=== PATIENT | female | born 1985 | race Caucasian/White ===

== ENCOUNTER 2017-04-20 05:18 | Inpatient (IN) | payer OTHER ==
[~2017-04-20] VITALS: Ht 167.6 cm; Wt 85.0 kg
[~2017-04-20 05:18] MED LIST: COLA100C5 PO; PRENTAB55 PO; TYLE500T78 PO
[2017-04-20 06:00] LABS: MEAN CORPUSCULAR HEMOGLOBIN 32.5 pg (27.0-33.0); MEAN CORPUSCULAR HGB CONC 34.9 g/dl (32.0-36.5); MEAN CORPUSCULAR VOLUME 93.4 fl (80.0-96.0); RED CELL DISTRIBUTION WIDTH 13.4 % (11.5-14.5)
[2017-04-20] MEDS ORDERED: MORPHINE PRES-FREE INJ 10 MG/10 ML VIAL (J2274) As Ordered ONE (07:26)
[2017-04-20] MEDS ORDERED: BICITRA 30ML SOLN UDC As Ordered ONE (07:34)
[2017-04-20] MEDS ORDERED: ceFAZolin 2 GM/D5W 50 ML IV BAG (J0690) As Ordered ONE (07:35)
[2017-04-20] MEDS ORDERED: LACTATED RINGER'S 1000 ML IV ONE (07:45)
[2017-04-20] MEDS ORDERED: LR 1,000 ML IV SCH ×2 (07:45→09:45)
[2017-04-20] MEDS ORDERED: BICITRA 30ML SOLN UDC PO ONE (07:45)
[2017-04-20] MEDS ORDERED: OXYTOCIN INJ 10 UNITS/ML VIAL (J2590) As Ordered ONE (08:05)
[2017-04-20] MEDS ORDERED: ePHEDrine SULFATE 25 MG/5 ML(5MG/ML) SYRINGE As Ordered ONE (08:05)
[2017-04-20] MEDS ORDERED: ONDANSETRON 4MG/2ML VIAL (J2405) As Ordered ONE (08:05)
[2017-04-20] MEDS ORDERED: KETOROLAC 60 MG/2 ML VIAL (J1885) As Ordered ONE (08:06)
[2017-04-20] MEDS ORDERED: fentaNYL 100 MCG/2 ML INJECTION (J3010) As Ordered ONE (08:31)
[2017-04-20] MEDS ORDERED: KETAMINE HCL 200 MG/20 ML VIAL As Ordered ONE (08:41)
[2017-04-20] MEDS ORDERED: MIDAZOLAM INJ 2 MG/2 ML VIAL (J2250) As Ordered ONE (08:42)
[2017-04-20] MEDS: LR 1,000 ML IV SCH ×2 (09:23→17:23)
[2017-04-20] MEDS ORDERED: OXYTOCIN DRIP 30 UNITS in APPROPRIATE DILUENT 1 EA IV SCH (09:23)
[2017-04-20] MEDS ORDERED: METOCLOPRAMIDE INJ 10MG/2ML VIAL (J2765) IV PRN ×2 (09:30→09:45)
[2017-04-20] MEDS ORDERED: RHOGAM 300 MCG (1500 IU) INJ (J2790) IM SCH (09:30)
[2017-04-20] MEDS ORDERED: MEASLES,MUMPS,RUBELLA VACCINE INJ (MMR-II) (90707) SC SCH (09:30)
[2017-04-20] MEDS ORDERED: PERCOCET 5MG/325MG TAB PO PRN ×2 (09:30→09:45)
[2017-04-20] MEDS ORDERED: fentaNYL 100 MCG/2 ML INJECTION (J3010) IV PRN (09:45)
[2017-04-20] MEDS ORDERED: ONDANSETRON 4MG/2ML VIAL (J2405) IV PRN (09:45)
[2017-04-20] MEDS ORDERED: MEPERIDINE INJ 25 MG/ML VIAL (J2175) IV PRN (09:45)
[2017-04-20 10:50] VITALS: BP 104/66
[2017-04-20 11:20] VITALS: BP 100/55
[2017-04-20 12:25] VITALS: BP 104/55
[2017-04-20 13:20] VITALS: BP 106/62
[2017-04-20] MEDS: PRENATAL VITAMINS CHEWABLE TABLET PO SCH (14:41)
[2017-04-20] MEDS: DOCUSATE SODIUM 100 MG CAP PO SCH ×2 (14:41→20:03)
[2017-04-20] MEDS: KETOROLAC 30 MG/ML VIAL (J1885) IV SCH ×2 (14:42→20:03)
[2017-04-20] MEDS: diphenhydrAMINE INJ 50MG/ML VIAL (J1200) IV PRN ×2 (16:44→21:37)
[2017-04-20 17:52] VITALS: BP 96/55
[2017-04-20 22:03] VITALS: BP 103/51
[2017-04-21] MEDS: LR 1,000 ML IV SCH ×3 (00:50→16:33)
[2017-04-21 02:00] VITALS: BP 100/58
[2017-04-21] MEDS: KETOROLAC 30 MG/ML VIAL (J1885) IV SCH (03:12)
[2017-04-21 05:16] VITALS: BP 105/52
--- NOTE | 2017-04-21 07:06 | IPNPDOC ---
Text Note Date of Service The patient was seen on 04/21/17. NOTE POD1 prog note States feeling well, no complaints. No heavy VB. Pain controlled. Voiding, ambulatory. Bonding well and breast feeding well. VSSAF CTAB RRR Ut at U-2, firm Inc CDI, bandage removed (minimal strike thru) Ext no CCE UO adequate CBC pending today a/p: Doing well. d/c likely tomorrow. Routine Postop care. Sessions VSZeb, I+O VSZeb I+O Vital Signs Date Time Temp Pulse Resp B/P (MAP) Pulse Ox O2 Delivery O2 Flow Rate FiO2 04/21/17 05:16 98.0 64 16 105/52 (69) 97 Room Air I&O- Last 24 Hours up to 6 AM 04/21/17 06:00 Intake Total 625 ml Output Total 2100 ml Balance -1475 ml BRANDY MONTES MD Apr 21, 2017 07:06
[2017-04-21 07:27] LABS: MEAN CORPUSCULAR HEMOGLOBIN 33.2 pg (27.0-33.0); MEAN CORPUSCULAR HGB CONC 34.6 g/dl (32.0-36.5); MEAN CORPUSCULAR VOLUME 95.9 fl (80.0-96.0); RED CELL DISTRIBUTION WIDTH 13.4 % (11.5-14.5); WHITE BLOOD COUNT 11.4 K/mm3 (4.0-10.0)
[2017-04-21] MEDS: DOCUSATE SODIUM 100 MG CAP PO SCH ×2 (08:53→19:53)
[2017-04-21] MEDS: PRENATAL VITAMINS CHEWABLE TABLET PO SCH (08:54)
[2017-04-21] MEDS: PERCOCET 5MG/325MG TAB PO PRN ×3 (08:56→18:12)
[2017-04-21 10:10] VITALS: BP 93/50
[2017-04-21 14:27] VITALS: BP 111/60
[2017-04-21] MEDS: IBUPROFEN 800 MG TAB PO SCH (19:00)
[2017-04-22 02:00] VITALS: BP 102/56
[2017-04-22] MEDS: IBUPROFEN 800 MG TAB PO SCH (02:45)
[2017-04-22] MEDS: PERCOCET 5MG/325MG TAB PO PRN (05:10)
[2017-04-22 06:00] VITALS: BP 91/54
--- NOTE | 2017-04-22 06:43 | RO ---
DATE OF PROCEDURE: 04/20/2017 PREOPERATIVE DIAGNOSES: Prior section and undesired fertility. POSTOPERATIVE DIAGNOSES: Prior section and undesired fertility. OPERATIVE PROCEDURE: Elective repeat section and bilateral tubal ligation. SURGEON: Dr. Payam Flores FOOD SERVICE MANAGER: Dr. Dallas Celestin ANESTHESIA: Spinal. ESTIMATED BLOOD LOSS: 500 mL. DRAINS: 850 mL of clear urine in a Bernal catheter at the end of the procedure. FLUIDS REPLACED: Lactated Ringer's 1800 mL. SPECIMENS REMOVED: Bilateral segments of fallopian tubes. PREOPERATIVE ANTIBIOTICS: Ancef 2 grams IV. INDICATION: Prior and undesired fertility. DESCRIPTION OF OPERATION: Patient strongly desired a tubal ligation and repeat delivery, and informed consent was obtained in the clinic approximately 1 week prior to the scheduled surgery. On day of surgery, there were no changes and the patient desired to proceed as planned. She was taken to the operating room with an IV in place, and a spinal anesthetic was easily obtained. heart tones after the spinal were normal. Bernal catheter was placed without difficulty, and a standard prep and drape was performed without difficulty. Spinal was confirmed to be adequate, and a Pfannenstiel skin incision was performed over her prior incision without difficulty down to the layer of the fascia, which was nicked in the midline. This fascial incision was then extended bilaterally the extent of the skin incision without difficulty. Corey clamps were placed on the upper lip of the fascia, and the underlying rectus muscles were dissected off sharply. This was repeated inferiorly without difficulty. The rectus muscles were in the midline, and with successive spreading maneuvers with two mosquitoes, we were able to identify the peritoneum, which was entered sharply. Digital exploration revealed no scar tissue. Stretching maneuver created an adequate peritoneal window. Bladder blade was placed. Bladder flap was created. A low transverse uterine incision was easily created and stretched to adequacy. Amniotomy showed clear fluid, and the infant was delivered atraumatically with flexed head through the uterine incision and with fundal pressure, the shoulders easily delivered as well. The vigorous infant was dried somewhat, and the cord was clamped times two and cut. Cord blood was obtained and the , which was still in good shape, was walked to the warmer and the resuscitation team. With traction, fundal massage, and Pitocin running, the placenta was delivered through the incision and all trailing membranes were removed as well. The uterus was cleared of all clots and debris with two dry sponges after being wrapped in a warm sponge. The uterus was then closed from left to right with a running suture of #0 Vicryl locked. An imbrication stitch was then performed in the same manner with #0 Monocryl. Irrigation was performed behind the uterus, and attention was turned to the fallopian tubes. Starting with the left side, the mid isthmic portion was identified. It was tented up with a Ta suture, and the mesosalpinx underneath the tube was transected with Bovie cautery. #2-0 gut sutures were placed through the loop, and an approximately 1-2 cm size of fallopian tube was tied off and transected, all done consistent with the [place] method. This was then repeated on the patient's right side exactly the same as the left. The uterus was returned to the abdomen, and the colic gutters were inspected as well as the tubal sites. The left side looked fine. The right side was bleeding somewhat from the serosal edges of the mesosalpinx. This was addressed easily with cautery. Hemostasis noted. The lower uterine incision was then inspected and found to be hemostatic. Running the peritoneal edges, a few small bleeders were easily corrected with cautery. We then placed four mosquito clamps at the peritoneal edges, which was tented up, and closed with a running suture of #3-0 Vicryl. Rectus muscles were very closely reapproximated and, therefore, no sutures were needed. Rectus belly was inspected and found to be hemostatic, and the fascia was closed from left to right with a running suture of #0 Vicryl. The subcutaneous tissue was copiously irrigated, made to be hemostatic with a small amount of cautery, and closed with #3-0 Vicryl running from left to right. The skin was closed with #4-0 Monocryl in subcuticular fashion. Steri-Strips were placed, pressure dressing was placed, and patient's legs were frogged; and the uterus was firm at U -2 and, with a bimanual exam, the vagina and cervix were cleared and, of note, there were no clots or bleeding present whatsoever. Patient was then transferred to the postanesthesia care unit (PACU) in stable condition. All counts were correct, including sponge, needle, and instruments.
--- NOTE | 2017-04-22 07:50 | IPNPDOC ---
Text Note Date of Service The patient was seen on 04/22/17. NOTE POD2 prog note States feeling well, no complaints. No heavy VB. Pain controlled. Voiding, ambulatory. Bonding well and breast feeding well. VSSAF CTAB RRR Ut at 2, [employer] CDI Ext no CCE HCT 29.1 yest AM a/p: Doing well. d/c today. Sessions VSZeb, I+O VSZeb I+O Vital Signs Date Time Temp Pulse Resp B/P (MAP) Pulse Ox O2 Delivery O2 Flow Rate FiO2 04/22/17 06:00 98.3 65 16 91/54 (66) 97 Room Air I&O- Last 24 Hours up to 6 AM 04/22/17 06:00 Intake Total 1920 ml Balance 1920 ml SESSIONS,BRANDY Munguia MD Apr 22, 2017 07:50
--- NOTE | 2017-04-22 07:54 | DS.PDOC ---
Discharge Summary General Date of Admission Apr 20, 2017 at 05:18 Date of Discharge [id number] Discharge Summary PROCEDURES PERFORMED DURING STAY: Elective Repeat Delivery and Bilateral Tubal Ligation ADMITTING DIAGNOSIS: 1. Prior and Undesired Fertility DISCHARGE DIAGNOSES: 1. Healthy infant HOSPITAL COURSE: Admitted for scheduled surgery. Uncomplicated, see operative note. DISCHARGE MEDICATIONS: Motrin, Percocet, Colace, Lanolin Physical exam: see note from this morning LABORATORY DATA: Please see below. ACTIVITY: as tolerated. Nothing in vagina for 6 weeks. No bathing for 4 weeks. No driving for 2 weeks. DIET: regular DISPOSITION:stable TIME SPENT ON DISCHARGE: Greater than 15 minutes. Sessions Vital Signs/I&Os Vital Signs Date Time Temp Pulse Resp B/P (MAP) Pulse Ox O2 Delivery O2 Flow Rate FiO2 04/22/17 06:00 98.3 65 16 91/54 (66) 97 Room Air I&O- Last 24 Hours up to 6 AM 04/22/17 06:00 Intake Total 1920 ml Balance 1920 ml Discharge Medications Scheduled Docusate Sodium (Colace) 100 Mg Cap, 200 MG PO DAILY, (Reported) Multivitamins/ ( 19) 1 Tab Tab, 1 TAB PO DAILY, (Reported) Scheduled PRN Acetaminophen (Tylenol Extra Strength) 500 Mg Tab, 1,000 MG PO Q6HP PRN for PAIN , (Reported) Allergies Coded Allergies: Levofloxacin (Verified Allergy, Unknown, ANGIOEDEMA FACE MOUTH, 04/13/17) SESSIONS,BRANDY Munguia MD Apr 22, 2017 07:54
[2017-04-22] MEDS: PRENATAL VITAMINS CHEWABLE TABLET PO SCH (07:57)
[2017-04-22] MEDS: DOCUSATE SODIUM 100 MG CAP PO SCH (07:57)
[2017-04-22] MEDS ORDERED: IBUP-1114 PO (09:44)
[2017-04-22] MEDS ORDERED: OXYC1TAB23 PO (09:44)
--- NOTE | 2017-04-28 13:48 | IPN ---
DATE: 04/20/2017 This patient and her requested circumcision of their male . After discussing risks and benefits of circumcision, the medical and nonmedical indications, penile block and aftercare, expressed understanding of penile block and aftercare, signed and witnessed the consent form. We await clearance by the party plan sales consultant.
== END 2017-04-22 10:01 | disposition home or self-care (01) | DRG 766 ==
LOC: M LDI 05:18 → M OBS 10:50
PROVIDERS: ADMIT Obstetrics & Gynecology; ATTEND Obstetrics & Gynecology
PROC: 0UB70ZZ Excision of Bilateral Fallopian Tubes, Open Approach (ICD-10-PCS; 2017-04-20)
PROC: 10D00Z1 Extraction of Products of Conception, Low, Open Approach (ICD-10-PCS; principal; 2017-04-20 07:30)
DX: O34.211 Maternal care for low transverse scar from previous cesarean delivery (principal); Z3A.39 39 weeks gestation of pregnancy; Z37.0 Single live birth; Z30.2 Encounter for sterilization

== ENCOUNTER → 2018-04-15 | Outpatient (REF) | payer OTHER ==
[2018-04-16 13:12] LABS: CHLAMYDIA DNA AMPLIFICATION NEGATIVE (NEGATIVE); GC DNA AMPLIFICATION NEGATIVE (NEGATIVE)
== END ==
LOC: M SFHCLERA 19:10
DX: R30.0 Dysuria (principal)

== ENCOUNTER → 2018-06-26 | Outpatient (REF) | payer OTHER | LOC: M SFHCLERA 18:27 | DX: R30.0 Dysuria (principal) ==

== ENCOUNTER 2018-10-04 09:48 | Emergency (ER) | payer OTHER ==
[~2018-10-04] VITALS: Ht 167.6 cm; Wt 72.7 kg
[~2018-10-04 09:48] MED LIST changes: +IBUP-1114 PO; +OXYC1TAB23 PO
[2018-10-04] MEDS ORDERED: NS 1,000 ML IV ONE (10:30)
[2018-10-04] MEDS ORDERED: KETOROLAC 30 MG/ML VIAL (J1885) IV ONE (10:30)
[2018-10-04] MEDS ORDERED: ONDANSETRON 4MG/2ML VIAL (J2405) IV ONE (10:30)
[2018-10-04 10:36] LABS: BASO % 0.3 % (0.0-1.0); EOS # 0.1 10^3/uL (0.0-0.50); EOS % 1.6 % (0.0-3.0); HEMATOCRIT 40.7 % (36.0-47.0); HEMOGLOBIN 13.5 g/dl (12.0-15.5); LYMPH # 1.2 10^3/uL (1.5-4.5); MEAN CORPUSCULAR HGB CONC 33.2 g/dl (32.0-36.5); MEAN CORPUSCULAR VOLUME 93.3 fl (80.0-96.0); MONO # 0.2 10^3/uL (0.0-0.8); MONO % 5.9 % (0.0-5.0); NEUTROPHILS # 2.4 10^3/uL (1.8-7.7); NEUTROPHILS % 61.9 % (36.0-66.0); PLATELET COUNT, AUTOMATED 226 10^3/uL (150-450); RED BLOOD COUNT 4.36 10^6/uL (4.00-5.40); WHITE BLOOD COUNT 3.9 10^3/uL (4.0-10.0)
[2018-10-04 11:05] LABS: ALBUMIN 3.5 GM/DL (3.2-5.2); ALT/SGPT 21 U/L (12-78); AMYLASE 25 U/L (25-115); BILIRUBIN,DIRECT < 0.1 MG/DL (0.0-0.2); BILIRUBIN,TOTAL 0.2 MG/DL (0.2-1.0); BLOOD UREA NITROGEN 16 MG/DL (7-18); CALCIUM LEVEL 7.8 MG/DL (8.5-10.1); CARBON DIOXIDE LEVEL 26 MEQ/L (21-32); CHLORIDE LEVEL 108 MEQ/L (98-107); CREATININE FOR GFR 0.76 MG/DL (0.55-1.30); GLOMERULAR FILTRATION RATE > 60.0 (>60); GLUCOSE, FASTING 89 MG/DL (70-100); LIPASE 167 U/L (73-393); POTASSIUM SERUM 3.9 MEQ/L (3.5-5.1); SODIUM LEVEL 140 MEQ/L (136-145); TOTAL PROTEIN 6.9 GM/DL (6.4-8.2)
--- NOTE | 2018-10-04 11:28 | REP ---
RIGHT UPPER QUADRANT SONOGRAPHY: HISTORY: Epigastric pain and nausea. Worse after eating. COMPARISON STUDY: No comparison study. FINDINGS: Scanning through the right upper quadrant of the abdomen demonstrates a normal sized, thin-walled gallbladder without evidence of stone or polyp. Common bile duct is normal measuring 0.3 cm in greatest diameter. There is a 1.8 x 1.6 x 1.4 cm hyperechoic nodule in the left lobe consistent with hemangioma. No other focal liver lesion is seen. Liver size is normal. No pancreatic abnormality is observed. No right renal abnormality is seen. There is no evidence of ascites. The right kidney measures 11.7 x 4.9 x 3.8 cm. IMPRESSION: 1.8 cm hyperechoic nodule in the left lobe of the liver system with hemangioma. Consider MRI scanning. Otherwise negative right upper quadrant sonography. Electronically Signed by Paul Pino MD 10/04/2018 07:20 P
[2018-10-04] MEDS ORDERED: ISOVUE-370 76% 100ML VIAL (Q9967) As Ordered ONE (11:46)
[2018-10-04 12:13] VITALS: BP 106/55
--- NOTE | 2018-10-04 12:16 | REP ---
CT ABDOMEN AND PELVIS WITH IV BUT WITHOUT ORAL CONTRAST: HISTORY: Epigastric pain and nausea. No comparison CT imaging. Sonography shows a 1.8 cm hyperechoic nodule in the left lobe of the liver consistent with hemangioma. CT CONTRAST DOSE: 100 mL of intravenous Isovue 370 is administered. FINDINGS: Preliminary digital magnet placer radiograph is unremarkable. The lung bases are clear. The liver is normal in size. The left lobe lesion seen by sonography is seen by CT and does appear to show some peripheral enhancement. No other focal liver lesion is seen. Gallbladder is unremarkable. No pancreatic abnormalities observed. No adrenal lesion is seen. The spleen is homogeneous in texture and normal in size. The kidneys enhance symmetrically are morphologically intact. There are two small accessory splenules. No retroperitoneal mass or adenopathy is observed. Small and large intestinal bowel loops are unremarkable. A normal appendix is seen in the right lower quadrant. No uterine or ovarian abnormality is seen. Urinary bladder is largely empty but intact. No abdominal wall defect is observed. Bone window settings show no bony destructive lesion. IMPRESSION: 2.2 cm left lobe liver lesion compatible with hemangioma. This corresponds with the ultrasound finding. There are two small accessory splenules. Normal appendix. Otherwise negative CT study abdomen and pelvis with IV contrast. Electronically Signed by Paul Pino MD 10/04/2018 07:22 P
[2018-10-04] MEDS ORDERED: OMEP20CA3 PO (12:20)
--- NOTE | 2018-10-05 12:06 | ED PDOC ---
Post-Departure Follow-Up ft denia schwab faxed formal report of gb us for fu Noa Jackson MD Oct 05, 2018 12:06
== END 2018-10-04 12:26 | disposition home or self-care (01) ==
LOC: M ED 09:48
DX: R10.9 Unspecified abdominal pain (principal); K76.89 Other specified diseases of liver; J45.909 Unspecified asthma, uncomplicated
CPT/HCPCS: 74177; 76705; 80048; 80076; 81001; 82150; 83690; 85025; 96361; 96374; 96375; 99284; J1885; J2405; Q9967

== ENCOUNTER 2019-08-25 16:38 | Emergency (ER) | payer OTHER ==
[~2019-08-25] VITALS: Ht 167.6 cm; Wt 80.9 kg
[2019-08-25 16:38] VITALS: BP 131/61
[~2019-08-25 16:38] MED LIST changes: +OMEP20CA4 PO
[2019-08-25] MEDS ORDERED: POLY2.5S (16:44)
[2019-08-25] MEDS ORDERED: FLUORESCEIN OPHTH 1 MG STRIP OD ONE (17:00)
[2019-08-25] MEDS ORDERED: TETRACAINE 0.5% OPHTH SOLN 4ML OD ONE (17:00)
[2019-08-25] MEDS ORDERED: ACETAMINOPHEN 325 MG TAB PO ONE (18:00)
[2019-08-25] MEDS ORDERED: ERYT1OIN26 OD (18:25)
[2019-08-25] MEDS ORDERED: ERYTHROMYCIN OPHTH OINT OD ONE (18:30)
== END 2019-08-25 18:29 | disposition home or self-care (01) ==
LOC: M ED 16:38
DX: H10.9 Unspecified conjunctivitis (principal); Z79.899 Other long term (current) drug therapy; Z88.1 Allergy status to other antibiotic agents

== ENCOUNTER → 2019-11-10 | Outpatient (REF) | payer OTHER ==
[~2019-11-10] MED LIST changes: +ERYT1OIN26 OD; +OMEP1CAP73 PO; -OMEP20CA4 PO; +POLY2.5S
== END ==
LOC: M LAB REF 11:36
PROVIDERS: ATTEND Physician Assistant
DX: R30.0 Dysuria (principal)

== ENCOUNTER → 2019-11-19 | Outpatient (REF) | payer OTHER | LOC: M SFHCLERA 09:29 | PROVIDERS: ATTEND Nurse Practitioner Family | DX: R53.81 Other malaise (principal) ==